=== PATIENT | male | born 1985 | race Caucasian/White ===

== ENCOUNTER 2024-07-28 11:09 | Emergency (ER) | payer OTHER, SELFPAY ==
[2024-07-28 11:12] VITALS: BP 113/80
[2024-07-28 12:03] LABS: % Eosinophils 3.1 % (0-6); % Immature Granulocytes 0.2 % (0-0.5); % Lymphocytes 18.1 % (20.5-51.1); % Monocytes 6.4 % (1.7-9.3); % Neutrophils 71.2 % (42.2-75.2); Absolute Basophils 0.1 10^3/uL (0-0.2); Absolute Eosinophils 0.2 10^3/uL (0-0.7); Absolute Monocytes 0.4 10^3/uL (0.1-0.6); Absolute Neutrophils 4.1 10^3/uL (1.4-6.5); Hematocrit 41.6 % (39.0-52.0); Hemoglobin 14.8 g/dL (13.0-18.0); Mean Corp Hgb Conc. 35.6 g/dL (33.0-37.0); Mean Corpuscular Hgb 28.4 pg (27.0-31.0); Mean Corpuscular Volume 79.8 fL (80.0-94.0); Mean Platelet Volume 10.8 fL (7.4-10.4); Nucleated Red Blood Cells % 0 % (-); Platelet Count 207 10^3/uL (130-400); Red Blood Cell Count 5.21 10^6/uL (4.70-6.10); Red Cell Dist. Width 12.3 % (11.5-14.5); White Blood Cell Count 5.8 10^3/uL (4.8-10.8)
--- NOTE | 2024-07-28 12:03 | ED.GENMED ---
History of Present Illness
General
Chief Complaint: Breathing Problem
Source: patient and spouse
Exam Limitations: none
Time Seen by Provider: 07/28/24 11:32
Nursing documentation reviewed up to this point in time: agreed with
History of Present Illness
History of Present Illness:
pt is a 38 y/o M with h/o epilepsy
here with feelings of chest tightness this morning around 630 when he woke up
he said he tried to ignore it initially and then mentioed to zahraa melgoza
he had a little burning senesation too like GERD so she had him take some tums
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
he says he felt a little better; tended to his son and then a few hours later the pain returned and he felt like he started having painful breathing; then started panicking and asked his children to call who called 911
pt says he felt lightheaded like he was going to pass out, tingly all over at the time
he now feels better, is hugnry and doesn't feel overwhelemd; but he does have some SOB and mild pelrutic pain with deep breathing
no abdomianl pain, fever, cough,
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
Past History
Past History
ED Past Medical History: Seizures and Psychiatric
Social History
Tobacco: Smoker
Alcohol: None
Drug: Marijuana
Family History
Family History: Negative CAD or Sudden
Review of Systems
Review of Systems
Allergies reviewed?: Yes
All Other Systems: Not applicable
Phy Exam
Physical Exam
Physical Exam:
GENERAL: Alert , in no apparent distress
EYE: pupils equal and reactive
NECK: Supple
ENT: o/p clr, mmm.
CARDIAC: Regular rate and rhythm .
LUNGS: Clear breath sounds bilaterally, no acute respiratory distress, no wheezes/rales/rhonchi
ABDOMEN: Soft, without focal tenderness, no r/g, no cvat, normal bowel sounds
NEUROLOGICAL: Alert and oriented, no focal neuro deficits
SKIN: Warm and dry, skin intact.
MUSCULOSKELETAL: No edema, well perfused. neg xavier's sign
PSYCH: Normal and appropriate interaction.
Course
Orders/Labs/Results
Orders:
Orders
07/28/24 11:22
Electrocardiogram (*1) Urgent
Reason for Study: Shortness of Breath
EKG- Treatment ONCE
07/28/24 11:55
CR Chest - 2 Views Urgent
Comment:
Reason For Exam: chest pain
07/28/24 11:56
Complete Blood Count/With Diff Urgent
Comprehensive Metabolic Panel Urgent
D-Dimer Urgent
Lipase Urgent
Troponin I Urgent
Abnormal Lab Results
07/28/24
11:56
MCV 79.8 L fL
(80.0-94.0)
MPV 10.8 H fL
(7.4-10.4)
Absolute Lymphs (auto) 1.0 L 10^3/uL
(1.2-3.4)
Lymphocytes % 18.1 L %
(20.5-51.1)
Chloride 110 H mmol/L
(98-107)
BUN 23 H mg/dl
(9-20)
Glucose 103 H mg/dl
(70-99)
07/28/24 11:56
07/28/24 11:56
Vital Signs
Initial and Last Documented VS:
Initial Vital Signs
Temp Pulse Resp BP Pulse Ox
36.9 C 70 18 113/80 97
07/28/24 11:12 07/28/24 11:12 07/28/24 11:12 07/28/24 11:12 07/28/24 11:12
Last Documented Vital Signs
Temp Pulse Resp BP Pulse Ox
36.9 C 62 20 108/72 97
07/28/24 11:12 07/28/24 12:04 07/28/24 12:04 07/28/24 13:02 07/28/24 13:04
MDM/Problems Addressed
Differential Diagnosis Includes:
chest pain, PE, acs, gerd, anxiety
MDM/Problems Addressed:
38 y/o M
woe up 630 with chest tightness, felt anxious
wasn't sure if it was also gerd symtoms too, with some bruning
took tums but then felt better for a little while before it returned; started having panic after that, hyperventilating, tingling, lighteaded
family called 911
no known premature CAD in family
pt has no symptoms now, he feels better
took some lexapro this morning, pt has been out and hasn't picked up RX but used sons
he has 3 chidren in the room, young
seems mildly anxious
but otherwise stable vitals, normal exam
ekg sinus juan, no ischemic changes
trop and d dimer neg
cxr clear
eating lunch during reassessement
d/c home
*Critical Care Note
Total Time (30-74mins, 75-104mins- exclusive of procedures): Not Applicable
ED Attending Note
-
Portions of this chart may have been created with voice recognition software.� Occasional wrong word or��sound alike� substitutions may have occurred due to the inherent limitations of voice recognition software.
Discharge Plan
Departure
Patient Disposition: Home (Routine Discharge)
Date of Disposition: 07/28/24
Time of Disposition: 13:00
Patient with high blood pressure during this ER visit?: No
Condition: Fair
Discharge Problem:
Chest pain, Anxiety
Instructions: Chest Pain (DC), Stress
Prescriptions:
No Action
cyclobenzaprine 10 mg tablet
10 mg PO BID PRN (Reason: muscle spasm) Qty: 7 0RF
Referrals:
Myrna Reyes, [Family Provider] - Follow up in 2-3 days
Activity Restrictions/Additional Instructions:
YOUR BLOOD WORK, EKG AND CHEST XRAY WERE REASSURING THAT THIS IS NOT A CARDIAC EMERGENCY
YOU SHOULD TAKE YOUR LEXAPRO DAILY
FOLLOW UP WITH YOUR FAMILY DOCTOR
RETURN FOR WORSE SYPMTOMES
YOU CAN ALSO TRY PEPCID OVER THE COUNTER FOR ACID REFLUX NEEDED
Interventions
Interventions:
*Risk Screen - Suicide Last Done: 07/28/24 11:12
*General Assessment Last Done: 07/28/24 11:12
*Neglect/Abuse Screening Last Done: 07/28/24 11:12
*ED- Fall Risk Assessment Last Done: 07/28/24 11:34
*ED COVID-19 Vaccine History Last Done: 07/28/24 11:34
ED- Cardiac Assessment Last Done: 07/28/24 11:34
ED- Pulmonary Assessment Last Done: 07/28/24 11:34
Discharge Date and Time
Print Language: [id number]
[2024-07-28 12:17] LABS: ALT (SGPT) 40 U/L (0-50); AST (SGOT) 28 U/L (17-59); Albumin 4.6 g/dl (3.5-5.0); Alkaline Phosphatase 53 U/L (38-126); Blood Urea Nitrogen 23 mg/dl (9-20); Calcium 9.6 mg/dl (8.4-10.2); Carbon Dioxide 24 mmol/L (22-30); Chloride 110 mmol/L (98-107); Glucose 103 mg/dl (70-99); Lipase 191 U/L (23-300); Potassium 3.8 mmol/L (3.5-5.1); Sodium 140 mmol/L (135-145); Total Bilirubin 0.6 mg/dl (0.2-1.3); Total Protein 7.1 g/dl (6.3-8.2); eGFR > 60.00
[2024-07-28 12:19] LABS: D-Dimer < 0.27 ug/mlFEU (0.00-0.50)
[2024-07-28 12:28] LABS: Troponin I < 0.012 ng/ml
[2024-07-28 13:02] VITALS: BP 108/72
== END 2024-07-28 13:00 | disposition home or self-care (01) ==
LOC: EMR 11:09
PROVIDERS: Physician Assistant; EMERGENCY PHYSICIAN Emergency Medicine; FAMILY PHYSICIAN Family Medicine
DX: R07.89 Other chest pain (principal); F41.9 Anxiety disorder, unspecified; F17.200 Nicotine dependence, unspecified, uncomplicated
CPT/HCPCS: 99285; 71046; 80053; 83690; 84484; 85025; 85379; 93005